=== PATIENT | female | born 1995 ===

== ENCOUNTER 2017-05-11 07:45 | Emergency (ER) | payer OTHER ==
[2017-05-11] MEDS ORDERED: Tobramycin 0.3% OPHT SOLN OU STA (08:10)
--- NOTE | 2017-05-11 08:26 | C.PDOC ---
History Of Present Illness Patient arrives in the ED with complaints of eye pain and redness for the past few days. The patient also complains of bilateral ankle pain and notes that she has a fever. Denies headache, sore throat, nausea, vomiting, diarrhea, or other associated symptoms. Time Seen by Provider: 05/11/17 07:48 Chief Complaint (Nursing): Eye Problem History Per: Patient History/Exam Limitations: no limitations Onset/Duration Of Symptoms: Days, Persistent Current Symptoms Are (Timing): Still Present Quality: "Pain" Associated Symptoms: Pain. denies: Decreased Vision, Swelling Past Medical History Reviewed: Historical Data, Nursing Documentation, Vital Signs Vital Signs: Last Vital Signs Temp 98.1 F 05/11/17 09:03 Pulse 77 05/11/17 09:03 Resp 18 05/11/17 09:03 BP 121/79 05/11/17 09:03 Pulse Ox 100 05/11/17 16:35 - Medical History PMH: No Chronic Diseases Surgical History: No Surg Hx Family History: States: No Known Family Hx - Social History Hx Alcohol Use: No Hx Substance Use: No - Immunization History Hx Tetanus Toxoid Vaccination: No Hx Influenza Vaccination: Yes (10/2016) Hx Pneumococcal Vaccination: No Review Of Systems Except As Marked, All Systems Reviewed And Found Negative. Constitutional: Positive for: Fever. Negative for: Chills, Sweats Eyes: Positive for: Pain, Redness. Negative for: Vision Change Musculoskeletal: Positive for: Other (Ankle pain ) Physical Exam - Physical Exam Appears: Non-toxic, No Acute Distress Skin: Normal Color, Warm, Dry Head: Atraumatic, Normacephalic Eye(s): bilateral: PERRL, EOMI, Other (injection) Nose: Normal Oral Mucosa: Moist Throat: Normal, No Erythema, No Exudate Cardiovascular: Rhythm Regular Respiratory: Normal Breath Sounds, No Rales, No Rhonchi, No Wheezing Gastrointestinal/Abdominal: Soft, No Tenderness Extremity: Normal ROM, No Tenderness, Capillary Refill (< 2 sec.), No Swelling Neurological/Psych: Oriented x3, Normal Speech, Normal Cognition ED Course And Treatment O2 Sat by Pulse Oximetry: 100 Pulse Ox Interpretation: Normal Progress Note: Treated with Motrin and Tobramycin eye drops. On re-evaluation feeling better, ambulating with steady gait Reassessment Condition: Unchanged Disposition Counseled Patient/Family Regarding: Diagnosis, Need For Followup, Rx Given - Disposition Referrals: [facility] [Outside] [facility] [Outside] [facility] [Outside] Disposition: HOME/ ROUTINE Disposition Time: 09:45 Condition: STABLE Additional Instructions: Follow up with clinic for further evaluation Return to ED if any increase symptoms Prescriptions: Ibuprofen [Motrin] 1 tab PO TID PRN #30 tab PRN Reason: Pain Instructions: Arthralgia (ED), Conjunctivitis (ED) Forms: [employer] ([place]) Print Language: TURKMEN - POA Present On Arrival: None - Clinical Impression Clinical Impression: Eye infection, Ankle pain - 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 - Scribe Statement The provider has reviewed the documentation as recorded by the Sharanibcornell Medina All medical record entries made by the Rita were at my direction and personally dictated by me. I have reviewed the chart and agree that the record accurately reflects my personal performance of the history, physical exam, medical decision making, and the department course for this patient. I have also personally directed, reviewed, and agree with the discharge instructions and disposition.
[2017-05-11 08:42] LABS: RBC URINE 81 /hpf (0-3); URINE BACTERIA FEW (<OCC); URINE BILIRUBIN NEGATIVE (NEGATIVE); URINE BLOOD 2+ (NEGATIVE); URINE COLOR Yellow (YELLOW); URINE GLUCOSE (UA) NORMAL (Normal); URINE KETONE TRACE mg/dL (NEGATIVE); URINE LEUKOCYTE ESTERASE TRACE Leu/uL (Negative); URINE PROTEIN 1+ mg/dL (NEGATIVE); URINE UROBILINOGEN NORMAL mg/dL (0.2-1.0); WBC URINE 2 /hpf (0-5)
[2017-05-11 09:04] VITALS: BP 121/79; PULSE 77; RESP 18; TEMP 98.1
[2017-05-11 16:35] VITALS: O2SAT 100
== END 2017-05-11 09:03 | disposition home or self-care (01) ==
LOC: C.ER 07:45
DX: H44.003 Unspecified purulent endophthalmitis, bilateral (principal); M25.572 Pain in left ankle and joints of left foot; M25.571 Pain in right ankle and joints of right foot